=== PATIENT | female | born 1995 ===

== ENCOUNTER 2025-03-05 11:01 | Emergency (ER) | payer SELFPAY ==
[2025-03-05 11:24] VITALS: BP 107/69; PULSE 77; RESP 18; TEMP 36.9; O2SAT 99; BMI 29.7
--- NOTE | 2025-03-05 11:30 | PD.EDPREG ---
ED OB Contraction Preg RMI/HPI General Chief complaint: OB/Uterine Contractions Stated complaint: ABD PAIN, VAGINAL BLEEDING, PREG 10WKS 5 DAYS Time Seen by Provider: 03/05/25 11:35 Source: patient Arrival date/time: 03/05/25 11:01 30-year-old female with no known medical history presents to the emergency room with a chief complaint of lower pelvic cramping, and vaginal bleeding x 3 days. Patient is currently 10 weeks . She is a G4, P2. Mode of arrival: ambulatory Limitations: no limitations Related Data Allergies Allergy/AdvReac Type Severity Reaction Status Date / Time No Known Allergies Allergy Verified 03/05/25 11:04 Review of Systems Review of Systems Systems Reviewed: All systems reviewed, normal except as documented Constitutional Constitutional: Reports system reviewed and no additional complaints, except as documented, Denies fatigue, Denies fever(s), Denies headache(s) and Denies weakness Eyes Eyes: Reports system reviewed and no additional complaints, except as documented, Denies blurry vision and Denies change in vision ENT Ears, Nose, Mouth, and Throat: Reports system reviewed and no additional complaints, except as documented, Denies otalgia, Denies headache(s), Denies nasal congestion, Denies throat swelling and Denies vertigo Cardiovascular Cardiovascular: Reports system reviewed and no additional complaints, except as documented, Denies chest pain, Denies dyspnea and Denies dyspnea on exertion Respiratory Respiratory: Reports system reviewed and no additional complaints, except as documented, Denies chest congestion, Denies cough, Denies dyspnea, Denies dyspnea on exertion and Denies wheezing Gastrointestinal Gastrointestinal: Reports system reviewed and no additional complaints, except as documented, Denies abdominal pain, Denies cramping, Denies nausea and Denies vomiting Genitourinary Genitourinary: Reports system reviewed and no additional complaints, except as documented Musculoskeletal Musculoskeletal: Reports system reviewed and no additional complaints, except as documented and Denies back pain Integumentary/Breasts Skin/Breast: Reports system reviewed and no additional complaints, except as documented and Denies wounds Neurologic Neurologic: Reports system reviewed and no additional complaints, except as documented, Denies confusion, Denies headache(s), Denies lack of coordination, Denies vertigo and Denies weakness Psychiatric Psychiatric: Reports system reviewed and no additional complaints, except as documented, Denies anxiety, Denies confusion, Denies depression, Denies paranoia, Denies suicidal ideation and Denies tactile hallucinations Endocrine Endocrine: Reports system reviewed and no additional complaints, except as documented and Denies fatigue Hematologic/Lymphatic Hematologic/Lymphatic: Reports system reviewed and no additional complaints, except as documented and Denies lymphadenopathy Allergic/Immunologic Allergic/Immunologic: Reports system reviewed and no additional complaints, except as documented, Denies throat swelling, Denies urticaria and Denies wheezing Past Medical History Social History SMOKING STATUS: Never smoker ED Exam General Limitations: Present no limitations General appearance: Present alert and in no apparent distress Head Head exam: Present atraumatic Eye Eye exam: Present normal appearance, PERRL and EOMI ENT ENT exam: Present normal exam, normal oropharynx and mucous membranes moist Neck Neck exam: Present normal inspection, full ROM and trachea midline Chest Chest inspection: Present normal inspection and symmetric chest wall rise Respiratory Respiratory exam: Present normal lung sounds bilaterally Cardiovascular Cardiovascular exam: Present regular rate, normal rhythm and normal heart sounds Abdominal Exam Abdominal exam: Present soft and normal bowel sounds; Absent tenderness Extremities Exam Extremities exam: Present normal inspection and full ROM Back Exam Back exam: Present normal inspection and full ROM Neurological Exam Neurological exam: Present alert, oriented X3 and CN II-XII intact Psychiatric Psychiatric exam: Present normal affect and normal mood Skin Skin exam: Present warm, dry, intact and normal color Course Quality Measures none Orders Category Date Time Status US OB <= 14 weeks fetus Stat Exams 03/05/25 11:30 Ordered ABO/RH Type Stat Lab 03/05/25 11:30 Ordered Beta HCG,Quantitative Stat Lab 03/05/25 11:30 Ordered CBC Stat Lab 03/05/25 11:30 Ordered CMP [Comprehensive Metabolic Panel] Stat Lab 03/05/25 11:30 Ordered UA [Urinalysis] Stat Lab 03/05/25 11:30 Ordered Vital Signs Vital signs: Vital Signs Temperature 98.4 F 03/05/25 11:24 Pulse Rate 77 03/05/25 11:24 Respiratory Rate 18 03/05/25 11:24 Blood Pressure 107/69 03/05/25 11:24 Pulse Oximetry (%) 99 03/05/25 11:24 Oxygen Delivery Method Room Air 03/05/25 11:24 OB/Uterine Contractions MDM Narrative MDM Narrative:: 30-year-old female with no known medical history presents to the emergency room with a chief complaint of lower pelvic cramping, and vaginal bleeding x 3 days. Patient is currently 10 weeks . She is a G4, P2. Patient is hemodynamically stable and in no apparent distress Physical examination shows a soft nontender abdomen. Patient states she has had a vaginal bleeding for the last 3 days. Blood work and ultrasound was ordered but the patient eloped prior to getting her blood drawn or getting her ultrasound. Patient data External records reviewed:: [facility] previous records Clinical information provided by:: patient Social determinants that could affect healthcare access:: none Patient has the following chronic illnesses:: No chronic illness How is presenting disease/condition affected by chronic disease/condition?: no chronic disease Evaluation data The following diagnostics were reviewed and interpreted by me:: lab results and radiology exam(s) Lab and/or radiology exams considered but not ordered:: Labs and radiology exams considered and ordered Interpretation Summary: Ultrasound OB- Medications / Prescriptions Medications or Prescriptions considered but not ordered:: Medication not given Medication administrations:: Medication not given Consultations Consultation(s) initiated? (list below): No Diagnosis OB Contractions Differential Diagnosis: other (Vaginal bleeding/spontaneous /ectopic ) Most likely diagnosis given after review of the tests above:: Vaginal bleeding Admission Indicated Admission indicated?: not indicated Explain why admission is indicated or not indicated:: N/A Admission Request Was there a request for admission?: No Disposition Plan Disposition Plan: Discharge Discharge Attestation Discharge Attestation: The patient and all family members were given an opportunity to ask questions and understood the discharge instructions. Discharge instructions specifically effects, indications for sooner follow up or return to the emergency department, and the expected course of current diagnosis. Patient condition: Stable Discharge Plan Plan Patient Disposition: Elopement Discharge Disposition comment: Stable Problem List Clinical Impression: Vaginal bleeding Patient/Caregiver Discharge Instructions Print Language: Citizen Of [place]
--- NOTE | 2025-03-05 13:09 | PC.NURSE ---
CALLED PT, NO ANSWER. [facility] CALLED PT 4 TIMES BETWEEN 1140 & 1240 W/ NO ANSWER.
--- NOTE | 2025-03-05 13:19 | PC.NURSE ---
PT DID NOT ANSWER; ELNATED.
== END 2025-03-05 13:20 | disposition left against medical advice (07) ==
LOC: SERX 13:59
PROVIDERS: Emergency Provider Nurse Practitioner Family
DX: O20.9 Hemorrhage in early pregnancy, unspecified (principal); Z3A.10 10 weeks gestation of pregnancy; Z53.29 Procedure and treatment not carried out because of patient's decision for other reasons
CPT/HCPCS: 80053; 81001; 84702; 85025; 86900; 86901; 99281